=== PATIENT | female | born 1995 | race Caucasian/White ===

== ENCOUNTER 2017-02-28 06:03 | Emergency (ER) | payer OTHER ==
[2017-02-28 06:25] VITALS: BP 109/74; PULSE 84; TEMP 98; BMI 19.7
[2017-02-28] MEDS ORDERED: AZITHROMYCIN 250 MG TABLET (FP) PO ONE (06:52)
--- NOTE | 2017-02-28 06:52 | PDOC ---
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 She presents with 5 days of sore throat, non-productive cough, and left>right ear pain. Her most recent ear infection was about four months ago per her report, and she took amoxicillin. She additionally notes sinus pressure and headache, but denies any difficulty swallowing, fever, chills, nausea, vomiting, diarrhea, rashes, shortness of breath, or chest pain. She lives with her parents and two brothers , none of whom have been sick recently, and she denies any other sick contacts. She expresses concern that she will be ill for her upcoming this Thursday. The patient and mother note that she is UTD on immunizations. 02/28/17 06:50 <Bonnie Gibbs - Last Filed: 02/28/17 06:46> <Xochilt Ramey - Last Filed: 02/28/17 19:44> - General Chief Complaint: Ear Problem Stated Complaint: SORE THROAT, EARACHE Time Seen by Provider: 02/28/17 06:30 Past History - Past Medical History Other medical history: Pt denies Comment:: 02/28/17 06:52 recurrent ear infections - Surgical History Other Surgical History: 02/28/17 06:52 tympanostomy tube placement - Immunization History Comment:: 02/28/17 06:52 up to date on all immunizations per mother and patient - Psycho/Social/Smoking Cessation Hx Anxiety: No Suicidal Ideation: No Smoking History: Never smoked Have you smoked in the past 12 months: No Information on smoking cessation initiated: No Hx Alcohol Use: No Drug/Substance Use Hx: No Substance Use Type: None <Bonnie Gibbs - Last Filed: 02/28/17 06:46> <Xochilt Ramey - Last Filed: 02/28/17 19:44> - Past Medical History Allergies/Adverse Reactions: Allergies Allergy/AdvReac Type Severity Reaction Status Date / Time No Known Allergies Allergy Verified 02/28/17 06:21 Home Medications: Ambulatory Orders Amox-Tr/K Cl [Augmentin - 875Mg Tablet] 1 tab PO BID #14 tablet 10/14/15 Azithromycin [Zithromax -] 250 mg PO DAILY #4 tab 02/28/17 Review of Systems - Review of Systems Constitutional: No: Chills, Fever, Unexplained wgt Loss HEENTM: Yes: Nose Congestion, Hearing Loss (L>R), Throat Pain, Other (ear pain, sinus pressure). No: Difficulty Swallowing Respiratory: No: Cough, Shortness of Breath Cardiac (ROS): No: Chest Pain, Palpitations ABD/GI: No: Constipated, Diarrhea, Nausea, Vomiting : No: Burning, Dysuria Musculoskeletal: No: Back Pain, Neck Pain Integumentary: No: Bruising, Rash Neurological: Yes: Headache. No: Numbness, Tingling, Weakness, Dizziness Endocrine: No: Unexplained Weight Gain, Unexplained Weight Loss <Bonnie Gibbs - Last Filed: 02/28/17 06:46> *Physical Exam - Vital Signs Last Vital Signs Temp Pulse Resp BP Pulse Ox 98.0 F 84 19 109/74 99 02/28/17 06:21 02/28/17 06:21 02/28/17 06:21 02/28/17 06:21 02/28/17 06:21 - Physical Exam General Appearance: Yes: Nourished, Appropriately Dressed, Thin, Other ( pleasant young woman). No: Apparent Distress HEENT: positive: EOMI, Normal Voice, Hearing Grossly Normal, Other (serous fluid behind TMs bilaterally, scarring of TMs likely from prior ear infections, one small serous-appearing bleb on the anterior inferior right TM, no EAC erythema). negative: Scleral Icterus (R), Scleral Icterus (L), Nasal Congestion , Sinus Tenderness Neck: positive: Trachea midline, Supple. negative: Tender, Rigid Respiratory/Chest: positive: Lungs Clear, Normal Breath Sounds. negative: Respiratory Distress, Crackles, Rhonchi, Stridor, Wheezing Cardiovascular: positive: Regular Rhythm, Regular Rate. negative: Murmur Gastrointestinal/Abdominal: positive: Normal Bowel Sounds, Soft. negative: Tender, Organomegaly, Pulsatile Mass, Guarding Musculoskeletal: positive: Normal Inspection. negative: Decreased Range of Motion, Vertebral Tenderness Extremity: positive: Normal Capillary Refill, Normal Inspection, Normal Range of Motion. negative: Tender, Cyanosis Integumentary: positive: Normal Color, Dry, Warm. negative: Erythema, Rash, Bruising Neurologic: positive: Fully Oriented, Alert, Normal Mood/Affect, Normal Response , Motor Strength 5/5 <Bonnie Gibbs - Last Filed: 02/28/17 06:46> - Vital Signs Last Vital Signs Temp Pulse Resp BP Pulse Ox 98.0 F 84 19 109/74 99 02/28/17 06:21 02/28/17 06:21 02/28/17 06:21 02/28/17 06:21 02/28/17 06:21 <Xochilt Ramey - Last Filed: 02/28/17 19:44> ED Treatment Course - Medications Given in the ED: ED Medications Discontinued Medications Generic Name Dose Route Start Last Admin Trade Name Freq PRN Reason Stop Dose Admin Azithromycin 500 mg 02/28/17 06:52 02/28/17 07:03 Zithromax - PO 02/28/17 06:53 500 mg ONCE ONE Administration <Xochilt Ramey - Last Filed: 02/28/17 19:44> Medical Decision Making - Medical Decision Making 02/28/17 06:56 21 year old female with pattern of frequent ear infections with h/o tympanostomy tube placement and most recent ear infection about 4 months ago. Ear symptoms this week are in the context of sore throat, cough, sinus pressure , headache. No fever or trouble swallowing, no SOB. Most likely this is bacterial otitis media given the patient's chronic pattern of OM. Also possible is serous otitis media without bacterial infection. She will be treated with azithromycin for possible bacterial otitis media. <Bonnie Gibbs - Last Filed: 02/28/17 06:46> - Medical Decision Making 02/28/17 19:42 Pt seen and discussed with the resident; she comes with bilateral ear pain and sinus pain. Ears TM bilat have fluid behind the ear and blebs on the TM, suggesting atypical bacteria; she will be teated with a zpak and asked to follow with her ENT. <Xochilt Ramey - Last Filed: 02/28/17 19:44> *DC/Admit/Observation/Transfer - Discharge Dispostion Admit: No - Attestations Physician Attestion: 02/28/17 07:17 I, Dr. Bonnie Gibbs, attest that this document has been prepared under my direction and personally reviewed by me in its entirety. I further attest, that it accurately reflects all work, treatment, procedures and medical decision -making performed by me. <Bonnie Gibbs - Last Filed: 02/28/17 06:46> <Xochilt Ramey - Last Filed: 02/28/17 19:44> Diagnosis at time of Disposition: Sore throat symptom, Upper respiratory infection, acute Otitis media Qualifiers: Otitis media type: unspecified Chronicity: acute Laterality: unspecified laterality Qualified Code(s): H66.90 - Otitis media, unspecified, unspecified ear - Prescriptions Prescriptions: Azithromycin [Zithromax -] 250 mg PO DAILY #4 tab - Referrals Referrals: Milagro Tripathi MD [Primary Care Provider] -
[2017-02-28] MEDS ORDERED: AZITHROMYCIN 250 MG TABLET (FP) ONE (06:53)
== END 2017-02-28 07:11 | disposition home or self-care (01) ==
LOC: JER 06:03
DX: J06.9 Acute upper respiratory infection, unspecified (principal); J02.9 Acute pharyngitis, unspecified; H66.93 Otitis media, unspecified, bilateral
CPT/HCPCS: 99281-25